=== PATIENT | female | born 1975 | race Hispanic/Latino ===

== ENCOUNTER 2016-08-14 10:32 | Emergency (ER) | payer OTHER ==
[2016-08-14 10:42] VITALS: BP 120/81; PULSE 96; RESP 18; TEMP 98.3; O2SAT 100
--- NOTE | 2016-08-14 10:57 | ED PDOC ---
HPI: General Adult Time Seen by Provider: 08/14/16 10:52 Chief Complaint (Nursing): GI Problem Chief Complaint (Provider): with nausea and vomiting History Per: Patient Additional Complaint(s): 41-year-old female presents to emergency department with persistent nausea and vomiting that started yesterday. Patient is currently 6 weeks and denies any associated abdominal pain or vaginal bleeding. She states that she's been taking Diclegis but this has not helped the nausea and vomiting. Patient was told by her fertility specialist to come to ED today for further evaluation. She vomited earlier this morning and states that she usually vomits anywhere between 1-2 hours after every meal. Past Medical History Reviewed: Historical Data, Nursing Documentation, Vital Signs Vital Signs: Last Vital Signs Temp 98.3 F 08/14/16 10:52 Pulse 96 H 08/14/16 10:52 Resp 18 08/14/16 10:52 BP 120/81 08/14/16 10:52 Pulse Ox 100 08/14/16 13:11 - Medical History PMH: No Chronic Diseases - Surgical History Other surgeries: D&C - Family History Family History: States: No Known Family Hx - Living Arrangements Living Arrangements: With Family - Social History Current smoker - smoking cessation education provided: No Alcohol: None Drugs: Denies - Home Medications Home Medications: Ambulatory Orders Medication Instructions Recorded Nitrofurantoin Macrocrystals 100 mg PO BID #14 cap 08/14/16 [Macrobid] Ondansetron [Zofran Odt] 4 mg PO ASDIR PRN #20 odt 08/14/16 - Allergies Allergies/Adverse Reactions: Allergies Allergy/AdvReac Type Severity Reaction Status Date / Time No Known Allergies Allergy Verified 08/14/16 10:52 Review of Systems ROS Statement: Except As Marked, All Systems Reviewed And Found Negative Constitutional: Negative for: Fever, Chills Cardiovascular: Negative for: Chest Pain Respiratory: Negative for: Cough Gastrointestinal: Positive for: Nausea, Vomiting. Negative for: Abdominal Pain , Diarrhea, Constipation Genitourinary Female: Negative for: Dysuria, Vaginal Discharge, Vaginal Bleeding , Pelvic Pain Physical Exam - Reviewed Nursing Documentation Reviewed: Yes Vital Signs Reviewed: Yes - Physical Exam Appears: Positive for: Well, Non-toxic, No Acute Distress Skin: Negative for: Rash Eye Exam: Positive for: Normal appearance, EOMI, PERRL ENT: Positive for: Normal ENT Inspection Cardiovascular/Chest: Positive for: Regular Rate, Rhythm Respiratory: Positive for: Normal Breath Sounds Gastrointestinal/Abdominal: Positive for: Soft. Negative for: Tenderness, Distended, Guarding, Rebound Neurologic/Psych: Positive for: Alert, Oriented - Laboratory Results Result Diagrams: 08/14/16 11:57 08/14/16 11:57 Urine POC: Positive Urine dip results: Positive for: Leukocyte Esterase (small) - ECG O2 Sat by Pulse Oximetry: 100 Pulse Ox Interpretation: Normal Medical Decision Making Medical Decision Making: Impression: hyperemesis gravidarum Plan: CBC CMP Beta quant Urine dip IVF IV zofran 12:56 pm: Patient is slightly better but still complaining of nausea. Additional 4 mg IV Zofran administered. 1:20 pm: patient feels better after second dose of zofran and is now able to tolerate juice and sandwich in ED with no further emesis noted. Patient's OB is Dr. Ken, I spoke with Dr. Weiss, chief radiation therapist OB from same practice who states patient can be discharged with rx zofran. Patient has follow up appt tomorrow in OB office. Disposition - Clinical Impression Clinical Impression: Hyperemesis gravidarum, Urinary tract infection - Patient ED Disposition Is Patient to be Admitted: No Counseled Patient/Family Regarding: Studies Performed, Diagnosis, Need For Followup, Rx Given - Disposition Referrals: Ford Ken MD [Staff Provider] - Disposition: Routine/Home Disposition Time: 13:10 Condition: IMPROVED Prescriptions: Nitrofurantoin Macrocrystals [Macrobid] 100 mg PO BID #14 cap Ondansetron [Zofran Odt] 4 mg PO ASDIR PRN #20 odt PRN Reason: Nausea/Vomiting Instructions: Hyperemesis Gravidarum (ED), Urinary Tract Infection in Women (ED ) Results - Lab Results Lab Results: 08/14/16 08/14/16 08/14/16 12:28 11:57 11:57 WBC 6.0 RBC 4.93 Hgb 14.7 Hct 43.3 MCV 87.6 MCH 29.8 MCHC 34.0 RDW 12.8 Plt Count 282 MPV 9.4 Neut % (Auto) 70.4 Lymph % (Auto) 19.8 L Thayer % (Auto) 7.3 Eos % (Auto) 2.0 Baso % (Auto) 0.5 Neut # 4.2 Lymph # 1.2 Thayer # 0.4 Eos # 0.1 Baso # 0.0 Sodium 138 Potassium 3.8 Chloride 101 Carbon Dioxide 27 Anion Gap 14 BUN 12 Creatinine 0.7 Est GFR ( Amer) > 60 Est GFR (Non-Af Amer) > 60 Random Glucose 91 Calcium 9.6 Total Bilirubin 0.6 AST 26 ALT 26 Alkaline Phosphatase 36 L Total Protein 7.7 Albumin 4.2 Globulin 3.5 Albumin/Globulin Ratio 1.2 Beta HCG, Quant 40356.00 Urine Color Dione Urine Clarity Slighty-cloudy Urine pH 6.0 Ur Specific [place] 1.020 Urine Protein Negative Urine Glucose (UA) Neg Urine Ketones Negative Urine Blood Negative Urine Nitrate Negative Urine Bilirubin Negative Urine Urobilinogen 0.2-1.0 Ur Leukocyte Esterase Large Urine RBC (Auto) 3 Urine Microscopic WBC 14 H Ur Squamous Epith Cells 20 H Urine Bacteria Rare
[2016-08-14] MEDS ORDERED: Sodium Chloride 0.9% 1,000 ML IV STA (11:07)
[2016-08-14 12:06] LABS: BASO % 0.5 % (0.0-2.0); EOS # 0.1 K/uL (0.0-0.7); HEMATOCRIT 43.3 % (34.0-47.0); LYMPH # 1.2 K/uL (1.0-4.3); LYMPH % 19.8 % (20.0-40.0); MEAN CELL VOLUME 87.6 fl (81.0-99.0); MEAN CORPUSCULAR HEMOGLOBIN 29.8 pg (27.0-31.0); MEAN PLATELET VOLUME 9.4 fl (7.2-11.7); MONO # 0.4 K/uL (0.0-0.8); MONO % 7.3 % (0.0-10.0); NEUT # 4.2 K/uL (1.8-7.0); NEUT % 70.4 % (50.0-75.0); RED CELL DISTRIBUTION WIDTH 12.8 % (11.5-14.5)
[2016-08-14 12:12] LABS: ALB/GLOB RATIO 1.2 (1.0-2.1); ALKALINE PHOSPHATASE 36 U/L (38-126); ALT/SGPT 26 U/L (9-52); AST/SGOT 26 U/L (14-36); BILIRUBIN,TOTAL 0.6 mg/dl (0.2-1.3); BLOOD UREA NITROGEN 12 mg/dl (7-17); CALCIUM 9.6 mg/dL (8.4-10.2); CARBON DIOXIDE 27 mmol/L (22-30); CHLORIDE 101 mmol/L (98-107); GFR AFRICAN-AMERICAN > 60; GLUCOSE,RANDOM 91 mg/dL (65-105); POTASSIUM 3.8 MMOL/L (3.6-5.0); SODIUM 138 mmol/l (132-148); TOTAL PROTEIN 7.7 G/DL (6.3-8.2)
[2016-08-14 13:03] LABS: RBC URINE 3 /hpf (0-3); URINE BACTERIA RARE (<OCC); URINE BILIRUBIN NEGATIVE (NEGATIVE); URINE BLOOD NEGATIVE (NEGATIVE); URINE COLOR AMBER (YELLOW); URINE GLUCOSE (UA) NEG (Normal); URINE KETONE NEGATIVE (NEGATIVE); URINE LEUKOCYTE ESTERASE LARGE Leu/uL (Negative); URINE PROTEIN NEGATIVE (NEGATIVE); URINE UROBILINOGEN 0.2-1.0 mg/dL (0.2-1.0); WBC URINE 14 /hpf (0-5)
== END 2016-08-14 14:07 | disposition home or self-care (01) ==
LOC: H.ER 10:32
DX: O21.1 Hyperemesis gravidarum with metabolic disturbance (principal); O23.40 Unspecified infection of urinary tract in pregnancy, unspecified trimester